=== PATIENT | female | born 1960 | race Caucasian/White ===

== ENCOUNTER 2025-02-27 14:12 | Emergency (ER) | payer MEDICARE ==
[~2025-02-27] VITALS: Ht 162.6 cm; Wt 75.9 kg
[2025-02-27 16:52] VITALS: BP 139/94; PULSE 79; RESP 16; TEMP 98.7; O2SAT 97
== END 2025-02-27 16:54 | disposition home or self-care (01) ==
LOC: ER 14:13
DX: L76.22 Postprocedural hemorrhage of skin and subcutaneous tissue following other procedure (principal)
CPT/HCPCS: 29515; 99284; A4330; A6222; A6223; A6402; A6446; Z7610; A6449